=== PATIENT | female | born 1955 | race Caucasian/White ===

== ENCOUNTER 2023-05-23 22:00 | Emergency (ER) | payer MEDICARE ==
[~2023-05-23] VITALS: Ht 165.1 cm; Wt 59.0 kg
[2023-05-23 23:05] VITALS: BP 136/85; PULSE 91; RESP 18; TEMP 97.8; O2SAT 90
[2023-05-23 23:35] VITALS: BP 146/77; PULSE 89; RESP 18; O2SAT 91
[2023-05-23] MEDS ORDERED: NS 1000ML 1,000 ML IV STA (23:43)
[2023-05-24 00:05] VITALS: BP 132/89; PULSE 82; RESP 18; O2SAT 90
[2023-05-24 00:13] LABS: ALBUMIN(ML) 3.3 g/dL (3.4-5.0); ALBUMIN/GLOBULIN RATIO 0.733; ANION GAP 19.1; BUN/CREATININE RATIO 16.02 (10.0-20.0); CALCIUM 9.2 mg/dL (8.4-10.5); CARBON DIOXIDE 26.8 mmol/L (20.0-32); CREATININE SERUM 1.81 mg/dL (0.59-1.40); EST GFR, NON-AA 27.8 (>/=60); POTASSIUM 4.9 mmol/L (3.6-5.2)
[2023-05-24 00:17] LABS: BASOPHIL % 0.2 % (0.0-0.2); HEMATOCRIT(ML) 39.1 % (36.0-46.0); HEMOGLOBIN 13.3 g/dL (12.0-15.0); LYMPHOCYTES # 0.89 10^3/uL1 (1.0-4.8); LYMPHOCYTES % 4.1 % (24.0-44.0); MEAN CORP HGB 30.7 pg (26-34); MEAN CORP VOLUME 90.3 fL (78-100); MONOCYTES # 1.6 10^3/uL (0.3-0.8); MONOCYTES % 7.2 % (5.0-12.0); NEUTROPHIL # 19.3 10^3/uL (1.8-7.7); PLATELET COUNT 175 10^3/uL (150-400); RED BLOOD CELL 4.33 10^6/uL (4.00-5.20); RED CELL DISTRIBUTION WIDTH 12.8 % (11.5-14.5); WHITE BLOOD CELL 21.9 10^3/uL (4.5-11.0)
[2023-05-24 00:22] LABS: +ADD MANUAL DIFF(NO CHRG) NO
[2023-05-24 00:34] LABS: BILIRUBIN,URINE NEGATIVE (NEGATIVE); LEUKOCYTE ESTERASE ,URINE 1+ (NEGATIVE); NITRATE,URINE NEGATIVE (NEGATIVE); PH,URINE 5.5 (4.5-8.0); UROBILINOGEN,URINE 0.2 E.U./dL (0.2)
[2023-05-24 00:35] VITALS: BP 115/72; PULSE 78; RESP 18; O2SAT 89
[2023-05-24 00:36] LABS: APPEARANCE,URINE CLOUDY; UA COLOR YELLOW
[2023-05-24] MEDS ORDERED: ROCEPHIN 1,000 MG in NS 100ML 100 ML IV STA (01:00)
[2023-05-24 01:05] VITALS: BP 103/72; PULSE 93; RESP 18; O2SAT 91
[2023-05-24] MEDS ORDERED: ROCEPHIN ONE (01:10)
[2023-05-24] MEDS ORDERED: NS 100ML 100 ML IV ONE (01:10)
[2023-05-24 01:35] VITALS: BP 120/76; PULSE 90; RESP 18; O2SAT 90
[2023-05-24] MEDS ORDERED: MORPHINE SULFATE IV STA (01:48)
[2023-05-24] MEDS ORDERED: ZOFRAN IV STA (01:48)
[2023-05-24] MEDS ORDERED: HNS 1000ML 1,000 ML IV STA (01:48)
[2023-05-24] MEDS ORDERED: HUMULIN R IV STA (01:48)
[2023-05-24] MEDS ORDERED: HNS 1000ML 1,000 ML ONE (01:53)
[2023-05-24] MEDS ORDERED: MORPHINE SULFATE ONE (01:53)
[2023-05-24] MEDS ORDERED: ZOFRAN ONE (01:53)
[2023-05-24] MEDS ORDERED: HUMULIN R ONE (01:54)
[2023-05-24 02:05] VITALS: BP 137/90; PULSE 90; RESP 18; O2SAT 97
== END 2023-05-24 02:35 | disposition short-term general hospital (02) ==
LOC: ER 22:00
DX: S72.141A Displaced intertrochanteric fracture of right femur, initial encounter for closed fracture (principal); N39.0 Urinary tract infection, site not specified; N17.9 Acute kidney failure, unspecified; E11.65 Type 2 diabetes mellitus with hyperglycemia; E86.0 Dehydration; R41.82 Altered mental status, unspecified; Z89.511 Acquired absence of right leg below knee; W19.XXXA Unspecified fall, initial encounter; Y93.89 Activity, other specified; Y92.89 Other specified places as the place of occurrence of the external cause; Y99.8 Other external cause status
CPT/HCPCS: 99291; 70450; 96361 ×2; 71045; 72192; 80053; 85025; 36415 ×2; 84484; 83605; 82550; 87077 ×2; 93005; 96365; 96375; 87086; 82948; 87040 ×2; 81001; 87186 ×3; J7030; J1815; J0696 ×2; J2405